=== PATIENT | female | born 1980 | race Caucasian/White ===

== ENCOUNTER 2017-07-15 10:59 | Inpatient (IN) | payer MEDICAID ==
[~2017-07-15] VITALS: Ht 165.1 cm; Wt 76.7 kg
[2017-07-15] MEDS ORDERED: SODIUM CHLORIDE 0.9% 1,000 ML IV ONE (14:06)
[2017-07-15 14:24] LABS: BASOPHILS % 0.4 % (0.0-2.0); EOSINOPHILS % 0.4 % (0.0-5.0); HEMATOCRIT. 36.5 % (36.0-48.0); HEMOGLOBIN. 12.7 g/dL (12.0-16.0); LYMPHOCYTES % 29.6 % (20.0-50.0); MEAN CORPUSCULAR HEMOGLOBIN 33.6 pg (28.0-32.0); MEAN CORPUSCULAR VOLUME 96.5 fL (81.0-99.0); MEAN PLATELET VOLUME 6.2 fl (7.4-10.4); MONOCYTES % 7.6 % (2.0-8.0); PLATELET 238 x1000/uL (130-400); RED BLOOD CELL COUNT 3.78 mill/uL (4.2-5.4)
[2017-07-15 14:44] LABS: CARBON DIOXIDE 22 mEq/L (21-32); CHLORIDE 109 mEq/L (98-107)
[2017-07-15 14:51] LABS: B-HCG QUANTITATIVE 1399 mIU/mL (<3)
[2017-07-15 14:55] LABS: CLARITY URINE CLOUDY (CLEAR); COLOR URINE YELLOW (YELLOW); GLUCOSE URINE NEGATIVE (NEGATIVE); KETONES URINE TRACE (NEGATIVE); LEUKOCYTE ESTERASE URINE TRACE (NEGATIVE); NITRITE URINE NEGATIVE (NEGATIVE); OCCULT BLOOD URINE 2+ (NEGATIVE); PH URINE 5.5 (4.5-8.0); PROTEIN URINE NEGATIVE (NEGATIVE); SPECIFIC GRAVITY URINE 1.032 (1.005-1.030)
[2017-07-15 20:02] VITALS: BP 100/55
[2017-07-16] VITALS (7 sets, daily range): BP systolic 94–121; BP diastolic 51–66
[2017-07-16] MEDS ORDERED: ONDANSETRON HCL 4MG/2ML VIAL IV PRN (00:15)
[2017-07-16] MEDS ORDERED: ACETAMINOPHEN 325MG TABLET PO PRN (00:15)
[2017-07-16 19:36] LABS: HCG SCREEN POSITIVE
[2017-07-16 23:54] LABS: BASOPHILS % 0.5 % (0.0-2.0); HEMATOCRIT. 36.4 % (36.0-48.0); HEMOGLOBIN. 12.5 g/dL (12.0-16.0); LYMPHOCYTES % 30.3 % (20.0-50.0); MEAN CORPUSCULAR HEMOGLOBIN 33.5 pg (28.0-32.0); MEAN CORPUSCULAR VOLUME 97.2 fL (81.0-99.0); MEAN PLATELET VOLUME 6.4 fl (7.4-10.4); MONOCYTES % 8.9 % (2.0-8.0); NEUTROPHILS % 59.3 % (40.0-76.0); PLATELET 237 x1000/uL (130-400); RED BLOOD CELL COUNT 3.75 mill/uL (4.2-5.4); RED CELL DISTRIBUTION WIDTH 14.1 % (11.6-14.6)
[2017-07-17] VITALS: BP 94/41
[2017-07-17 04:00] VITALS: BP 92/55
[2017-07-17 07:06] LABS: HCG SCREEN POSITIVE
[2017-07-17 12:00] VITALS: BP 106/51
[2017-07-17 16:00] VITALS: BP 92/49
[2017-07-17 20:00] VITALS: BP 99/56
[2017-07-17 20:41] LABS: BASOPHILS % 0.4 % (0.0-2.0); EOSINOPHILS % 0.8 % (0.0-5.0); HEMATOCRIT. 35.3 % (36.0-48.0); LYMPHOCYTES % 34.1 % (20.0-50.0); MEAN CORPUSCULAR HEMOGLOBIN 32.8 pg (28.0-32.0); MEAN CORPUSCULAR VOLUME 96.1 fL (81.0-99.0); MEAN PLATELET VOLUME 6.4 fl (7.4-10.4); MONOCYTES % 8.4 % (2.0-8.0); NEUTROPHILS % 56.3 % (40.0-76.0); PLATELET 241 x1000/uL (130-400); RED BLOOD CELL COUNT 3.67 mill/uL (4.2-5.4); RED CELL DISTRIBUTION WIDTH 13.7 % (11.6-14.6)
[2017-07-18] VITALS: BP 91/56
[2017-07-18 04:00] VITALS: BP 90/51
[2017-07-18 08:00] VITALS: BP 91/48
[2017-07-18 12:00] VITALS: BP 98/53
[2017-07-18 14:36] VITALS: BP 98/53
== END 2017-07-18 15:35 | disposition home or self-care (01) | DRG 532 ==
LOC: ER 13:13 → 6EST 17:56 → ENRESERV 20:02
PROVIDERS: ADMIT Obstetrics & Gynecology; ATTEND Obstetrics & Gynecology
DX: N93.9 Abnormal uterine and vaginal bleeding, unspecified (principal); O00.90 Unspecified ectopic pregnancy without intrauterine pregnancy
CPT/HCPCS: 36415; 76801; 80048; 81001; 84702; 84703; 85025; 86850; 86900; 96360; 99285; C1893; J7030